=== PATIENT | male | born 1965 | race American Indian/Alaskan Native ===

== ENCOUNTER 2017-11-07 08:20 | Day surgery (SDC) | payer MEDICAID ==
[2017-11-06 13:35] VITALS: BMI 26.9
[2017-11-07] MEDS ORDERED: Lactated Ringer's 500 ML IV ONE (09:28)
[2017-11-07] MEDS ORDERED: Midazolam 2 MG/2 ML VIAL ONE (09:28)
[2017-11-07] MEDS ORDERED: Propofol 10 mg/ml Inj (20 ML) ONE ×2 (09:28→09:32)
[2017-11-07 09:32] VITALS: O2SAT 100
[2017-11-07 12:24] VITALS: BP 127/69; PULSE 72; RESP 19; TEMP 97.9
== END 2017-11-07 11:00 | disposition home or self-care (01) ==
LOC: C.ENDO 08:20
PROVIDERS: ATTEND Internal Medicine Gastroenterology
DX: D12.5 Benign neoplasm of sigmoid colon (principal); Z12.11 Encounter for screening for malignant neoplasm of colon; D12.3 Benign neoplasm of transverse colon; K64.1 Second degree hemorrhoids; I10 Essential (primary) hypertension
CPT/HCPCS: 45380; 45385; 88305; J2001; J2250; J2704; J7120